=== PATIENT | female | born 1935 | race Caucasian/White ===

== ENCOUNTER → 2021-03-14 01:48 | Outpatient (CLI) | payer MEDICARE, SELFPAY ==
[2021-03-14 19:04] LABS: SARS-CoV-2 RNA PCR Negative
== END ==
PROVIDERS: Visit Provider Orthopaedic Surgery
DX: Z01.812 Encounter for preprocedural laboratory examination (principal); Z20.822 Contact with and (suspected) exposure to COVID-19
CPT/HCPCS: C9803; U0003; U0005

== ENCOUNTER 2021-03-14 08:32 | Outpatient (CLI) | payer MEDICARE, SELFPAY ==
--- NOTE | 2021-03-14 08:30 | ECG_ITS ---
Measurements Intervals [place] Rate: 75 P: 61 OR: 192 QRS: -69 QRSD: 165 T: 59 QT: 430 QTc: 480 Interpretive Statements SINUS RHYTHM WITH SINUS ARRHYTHMIA RIGHT BUNDLE BRANCH BLOCK LEFT ANTERIOR FASCICULAR BLOCK LEFT VENTRICULAR HYPERTROPHY AND ST-T CHANGE BASELINE ARTIFACT- I, II, III, AVR, AVL, AVF, V1-V6 ABNORMAL ECG Electronically Signed On 03-14-2021 12:16:41 CDT by Marbin Ramirez D.O.
== END 2021-03-14 08:33 | disposition home or self-care (01) ==
PROVIDERS: PCP Internal Medicine; Visit Provider Orthopaedic Surgery
DX: I10 Essential (primary) hypertension (principal); Z01.818 Encounter for other preprocedural examination; I45.10 Unspecified right bundle-branch block; I44.4 Left anterior fascicular block
CPT/HCPCS: 93005; C9803; U0003; U0005

== ENCOUNTER 2021-03-18 15:36 | Observation (INO) | payer MEDICARE, SELFPAY ==
[2021-03-04 10:23] VITALS: BMI 19.1
[2021-03-17] VITALS (27 sets, daily range): BP systolic 119–162; BP diastolic 46–87; PULSE 70–108; RESP 14–17; TEMP 36.3–37.7; O2SAT 94–100
[2021-03-17] MEDS: ACETAMINOPHEN 500 MG TABLET 1000 MG PO (08:17)
[2021-03-17] MEDS: LACTATED RINGERS 1,000 ML 30 ML IV CONT ×2 (08:39→12:01)
--- NOTE | 2021-03-17 08:40 | WPDHPUPDATE1 ---
History and Physical Update Update Date/Time: 03/17/21 08:40 History and Physical has been reviewed, including an updated exam of the patient. There are NO changes in the patient's condition. Covid test negative Risks, benefits, and alternatives have been discussed and questions answered. Patient agrees to proceed with procedure.
[2021-03-17] MEDS: KETOROLAC 15 MG/ML VIAL (*BKC) IV PUSH (08:41)
--- NOTE | 2021-03-17 09:34 | WPDANESEPPF ---
Anes - Initial Pre Proc Eval Procedure: Operation Date: 03/17/21 10:00 Proposed Procedures p Left Second Hammer Toe Correction - Felipe Slade MD Date/Time: 03/17/21 09:34 Surgeon: Felipe Slade MD Pre Op Diagnosis: left 2nd hammer toe Patient Data Age: 85 Gender: F Height: 5 ft 2.5 in Weight: 51 kg Last Vital Signs Temp 99.8 F H 03/17/21 08:50 Pulse 70 03/17/21 08:50 Resp 16 03/17/21 08:50 BP 149/57 H 03/17/21 08:50 Pulse Ox 95 03/17/21 08:50 Allergies Allergy/AdvReac Type Severity Reaction Status Date / Time hydrocodone Allergy Severe Anaphylactic Verified 03/17/21 08:11 Shock Sulfa (Sulfonamide Allergy Intermediate RASH/ITCHIN Verified 03/17/21 08:11 Antibiotics) G sulfanilamide Allergy Unknown Unknown Verified 03/04/21 10:19 NARCOTIC SENSITIVE AdvReac Intermediate NAUSEA/VOMI Uncoded 03/04/21 10:19 TING OPIATEAGONISTS AdvReac Unknown N/V Uncoded 03/04/21 10:19 Home Medications Medication Instructions Recorded Confirmed Type acetaminophen-codeine 1 cap PO PRN PRN 03/04/21 03/04/21 History amlodipine 5 mg PO QAM 03/04/21 03/17/21 History dexamethasone [Maxidex] 1 drp RIGHT EYE TID 03/04/21 03/17/21 History lamotrigine 150 mg PO QAM 03/04/21 03/17/21 History lisinopril 10 mg PO DAILY 03/04/21 03/17/21 History meloxicam 15 mg PO DAILY 03/04/21 03/17/21 History prednisolone acetate 1 drp RIGHT EYE QID 03/04/21 03/17/21 History tobramycin-dexamethasone 1 drp LEFT EYE QID 03/04/21 03/17/21 History Patient hx anesthesia problems: none Family hx anesthesia problems: none PMFSH Past Medical History Medical History (Updated 03/01/21 @ 15:26 by Felipe Slade MD) Arthritis Hammertoe of second toe of left foot Metatarsalgia of both feet Sprain of left foot Surgical History Surgical History History of total left knee replacement (TKR) (~09/2018) Family History Family History Other Family history of arthritis Hypertension Social History Social History Smoking status: Never smoker Alcohol intake: current Alcohol use details: ONE DRINK PER MONTH Substance use: never Living arrangements: alone Gender identity (if verbalized by the patient): Female Spiritual care concerns: No Anes - Eval Final PreProcedure Day of Procedure 03/17/21 09:34 Patient weight: normal Heart: regular rate and rhythm Lungs: clear to auscultation Airway: Mallampati scale class II Neurological: alert and oriented Last oral intake: >/= 8 hours ASA classification: II Anesthetic plan: proceed Anesthesia type and monitoring: general LMA and standard monitoring Informed Consent: The patient's anesthetic plan and its attendant risks and benefits were discussed with the patient/family/POA. Questions were solicited and answers provided to the satisfaction of the patient/family/POA.
--- NOTE | 2021-03-17 09:50 | SUR.PREOP ---
Warm blanket applied. Discussed delay with patient and daughter, voiced understanding.
[2021-03-17] MEDS: ceFAZolin 2 GM/D5W 50 ML 2 GM/50 ML BAG IVPB (11:27)
[2021-03-17] MEDS: BUPIVACAINE HCL 0.5% PF 30 ML VIAL INFILTRATE (11:43)
[2021-03-17] MEDS: fentaNYL CITRATE INJ (*CRX) 100 MCG/2 ML VIAL 25 MCG IV PUSH ×2 (12:22→12:37)
--- NOTE | 2021-03-17 12:27 | P.OP_ITS ---
Procedure Note - Detailed Date of procedure: 03/17/21 Pre-op diagnosis: left 2nd hammer toe Post-op diagnosis: same Procedure performed: Left 2nd hammertoe correction with PIP arthrodesis Description of procedure: Indications: Patient is a 85-year-old woman with a left 2nd hammertoe which has caused ulceration over the dorsum of the PIP joint. She has failed conservative treatment with shoe accommodation, padding and dressings. She is at risk for infection. She presents now for operative treatment. What was done: Patient identified in the preoperative holding. Informed consent given. Operative extremity marked. Patient received intravenous antibiotics. Patient brought to the operating room where underwent general anesthetic by anesthesia team. Positioned supine on operating room table. Time-out performed confirming the patient, site of the surgery and the plan. Left foot prepped draped usual sterile surgical fashion using ChloraPrep skin solution. Foot exsanguinated and calf tourniquet inflated to 225 mmHg. Local anesthetic 0.5% Marcaine. Elliptical incision made over the dorsum of the 2nd toe with 15 blade knife removing the ulceration and the extensor tendon complex. Collateral ligaments released and bone cutter used to remove the distal portion of the proximal phalanx and the proximal portion of the middle phalanx. Bone and smoothed with a rongeur. Wound irrigated. Toe was then reduced and fixed with the Arthrex hammertoe implant. A 0.045 in K-wires used a supplementary fixation. Image intensification confirmed alignment of the toe in placement of the hardware. Wound irrigated once again and skin closed with 4 nylon interrupted suture. Sterile dressing applied. The patient was then woken from anesthesia, extubated and taken to the recovery room in stable condition. All sponge, needle, instrument counts were correct at the end of the case. Implants: Arthrex 14 mm hammertoe implant, 0.45 in K-wire Anesthesia: GLMA Surgeon: Felipe Slade MD Director Pharmacovigilance: 1st assistant store manager operations Estimated blood loss (mL): 2 Tourniquet time (min): 27 Drains: No Packing: No Pathology: none sent Complications: None Condition: stable Disposition: PACU
[2021-03-17] MEDS: ALBUTEROL SULFATE NEB 2.5 MG/3 ML INH 1.25 MG INHALATION (13:27)
[2021-03-17] MEDS: DEXAMETHASONE SOD PHOS INJ 4 MG/ML VIAL 8 MG IV PUSH (13:36)
[2021-03-17] MEDS: diphenhydrAMINE HCl INJ 50 MG/ML VIAL 6.25 MG IV PUSH (13:48)
[2021-03-17] MEDS: racEPINEPHrine 2.25% NEBU SOLN 0.5 ML VIAL.NEB INHALATION (14:00)
--- NOTE | 2021-03-17 14:17 | PM.PNORT ---
Progress Note: A&P Assessment and Plan (1) Hammertoe of second toe of left foot: Code(s): M20.42 - Other hammer toe(s) (acquired), left foot Status: Acute (2) Metatarsalgia of both feet: Code(s): M77.41 - Metatarsalgia, right foot; M77.42 - Metatarsalgia, left foot Status: Acute (3) Inspiratory stridor: Code(s): R06.1 - Stridor Status: Acute Assessment and Plan: Patient postop from left foot hammertoe correction. Respiratory stridor and some shortness of breath noted. Improved with respiratory treatment and racemic epinephrine. Patient continues to saturate well at 98 and 99% however due to history of previous respiratory problems requiring intubation we will admit the patient and continue respiratory treatments. If she does well overnight may be able to discharge home tomorrow. Hospitalist contacted as [employer] treasury consultant. Continue oxygen protocol. Discussed with patient and family. They verbalized agreement. Subjective Subjective Date/Time Seen: 03/17/21 14:17 Called to postoperative area to evaluate patient. Patient with shortness of breath and stridor. Oxygen saturation at 99% but patient feels weak and somnolent. Apparently history of similar episode after previous general anesthetic which then required intubation. Exam Const: General: healthy appearing; No in distress or confusion Orientation/consciousness: patient oriented x3 and No confusion HENMT: Head: normal to inspection, normocephalic and atraumatic Eyes: Conjunctivae: conjunctivae normal Sclera: sclerae normal Resp: Effort & Inspection: normal respiratory effort and no audible wheezes Neuro: General: patient oriented x3 and No confusion Psych: Affect: normal affect Objective Data Vital Signs Vital Signs: Vital Signs - 24 hr 03/17/21 08:50 03/17/21 12:01 03/17/21 12:15 Temperature 99.8 F H 97.7 F Pulse Rate 70 87 82 Respiratory Rate 16 17 16 Blood Pressure 149/57 H 139/68 129/56 L Pulse Oximetry 95 100 100 03/17/21 12:30 03/17/21 12:45 03/17/21 12:50 Temperature Pulse Rate 79 79 70 Respiratory Rate 14 14 16 Blood Pressure 135/48 L 126/56 L 158/87 H Pulse Oximetry 100 100 100 03/17/21 13:20 03/17/21 13:25 03/17/21 13:30 Temperature Pulse Rate 81 80 86 Respiratory Rate 16 16 Blood Pressure 151/67 H Pulse Oximetry 95 03/17/21 13:50 03/17/21 14:00 03/17/21 14:05 Temperature Pulse Rate 86 87 88 Respiratory Rate 16 Blood Pressure 162/67 H Pulse Oximetry 98 Intake/Output Intake/Output: Intake & Output 03/14/21 03/15/21 03/16/21 03/17/21 23:59 23:59 23:59 23:59 Intake Total 100 Balance 100 Meds/Results Medications: Active Medications Generic Name Dose Route Start Last Admin Trade Name Freq PRN Reason Stop Dose Admin Acetaminophen/Codeine Phosphate 1 tab 03/17/21 12:46 Acetaminophen/Codeine (*Crx) 300/30 Mg Tablet PO ONCE PRN Pain Rated 4-6 Fentanyl Citrate 25 mcg 03/17/21 09:40 03/17/21 12:37 Fentanyl Citrate Inj (*Crx) 100 Mcg/2 Ml Vial IV PUSH 25 mcg Q2M PRN Administration Pain Lactated Ringer's 1,000 mls @ 30 mls/hr 03/16/21 13:20 03/17/21 12:01 Lr - Lactated Ringers Iv IV CONT Infused .Q24H ASHLY Infusion Lactated Ringer's 1,000 mls @ 30 mls/hr 03/17/21 09:40 03/17/21 12:45 Lr - Lactated Ringers Iv IV CONT 30 mls/hr .Q24H ASHLY Infusion Ondansetron HCl 4 mg 03/17/21 09:40 Ondansetron Inj 4 Mg/2 Ml Vial IV PUSH ONCE PRN Nausea Radiology Results: ITS Impressions Intraoperative X-Ray 03/17/21 13:13 IMPRESSION: 1. Fluoroscopy utilized during instrumented arthrodesis at the second proximal interphalangeal joint. See procedure note for further detail.
--- NOTE | 2021-03-17 14:19 | SUR.PHASEII ---
1300- Dr. Felton called and notified patient reporting she is having trouble breathing. Patient raspy and coughing. Reports she is struggling to take breaths at this time. Patient is 100% on room air. 1305- Dr. Felton to outpatient room 14 and listened to patient and evaluated her current status. Orders obtained for Albuterol nebulizer treatment. 1327- Orders from Dr. Felton during rounds on patient at bedside for 8MG of decadron IVP. 1345- Dr. Felton back to outpatient room 14 to assess patient's current status and given orders for Benadryl 6.25MG IVP and Racemic epi nebulizer. 1353- Notified Dr. Slade of patient's current status requiring breathing treatments and IV steroids for her upper airway status. Dr. Slade in to see patient and Daughter Melinda in outpatient room 14 and discussed her care. Per Dr. Slade patient can be admitted overnight for observation. 1413- Dr. Felton to bedside to speak with daughter Melinda and assess patient's current respiratory status. Patient reporting improvement with breathing and oxygen saturation on room air stable at this time.
--- NOTE | 2021-03-17 15:23 | SUR.PHASEII ---
1520- Call to JOCELYNN Sears on [facility] to give report. Per floor RN she is not available for report at this time.
--- NOTE | 2021-03-17 15:44 | SUR.PHASEII ---
1544- Report given to charge nurse Agnela Garrett at this time.
--- NOTE | 2021-03-17 15:52 | SUR.PHASEII ---
6524- Call to Dr. Slade to review patient's home medications at this time. Reviewed orders for continuing and holding medications and notified MD patient will be transferred to [facility] med/tele.
--- NOTE | 2021-03-17 16:00 | ADMGEN ---
This patient, Chel Jacobo, was admitted to Medical Room 246-01. Patient/family oriented to hospital policies and general routines including ID bracelet, bed and alarms, visiting hours, pain management, procedures, bathroom and other care routines, personal items, smoking policy, room service/diet, and visiting hours. Information on how to activate the Rapid Response Team has been discussed. Patient/Family are encouraged to report perceived risks to care and to ask questions if they do not understand what they are told or what they should do.
[2021-03-17] MEDS: ALBUTEROL SULFATE NEB 2.5 MG/0.5 ML INH 5 MG INHALATION ×2 (18:22→20:47)
[2021-03-17] MEDS: IPRATROPIUM BR 0.02% INH SOLN 0.5 MG/2.5 ML VIAL INHALATION (18:24)
[2021-03-17] MEDS: DOCUSATE SODIUM 100 MG CAPSULE PO (18:30)
[2021-03-17] MEDS: lisinopriL 10 MG TABLET PO (18:37)
[2021-03-17] MEDS: ACETAMINOPHEN 325 MG TABLET 650 MG PO (19:33)
--- NOTE | 2021-03-17 20:11 | PM.IMHP ---
H&P: HPI History of Present Illness Date/Time: 03/17/21 20:11 female patient who had surgery per Dr. Slade. Postoperatively the patient developed some wheezes and some stridor. The patient stated that she is allergic to hydrocodone and had a similar reaction with the previous surgery. The patient stated that she did not feel comfortable going home today as she was wheezing and felt short of breath. The patient stated that she had a BiPAP on with her last surgery. Please see the operative report. Postoperatively. Her oxygen level came up to 98-9 9%. She is currently on room air. The patient was prescribed nebulizer treatments. The patient stated that she does use an inhaler occasionally at home when she short of breath but she denies any asthma or COPD or emphysema. She denies any smoking history. The patient was being admitted for observation postoperative and I was consulted due to the stridor. Date of service is 03/17/2021. Chief Complaint: Respiratory stridor Review of Systems Review of Systems: All systems reviewed & are unremarkable except as noted in HPI and below Constitutional: Constitutional: Reports as per HPI and Reports no additional constitutional complaints Eyes: Eyes: Reports as per HPI and Reports no additional eye complaints ENT: Reports system reviewed and no additional complaints, except as documented and Reports Normal hearing present Cardiovascular: Cardiovascular: Reports no additional cardiovascular complaints Respiratory: Respiratory: Reports no additional respiratory complaints and Reports no additional respiratory complaints Gastrointestinal: Gastrointestinal: Reports as per HPI and Reports no additional gastrointestinal complaints Musculoskeletal: Musculoskeletal: Reports no additional musculoskeletal complaints Integumentary/Breasts: Skin/Breast: Reports system reviewed and no additional complaints, except as docu and Reports as per HPI Neurologic: Reports system reviewed and no additional complaints, except as documented, Reports as per HPI and Reports Normal hearing present Psychiatric: Psychiatric: Reports no additional psychiatric complaints and Reports as per HPI Endocrine: Endocrine: Reports no additional endocrine complaints Hematologic/Lymphatic: Hematologic/Lymphatic: Reports no additional hematologic/lymphatic complaints Allergic/Immunologic: Allergic/Immunologic: Reports no additional allergic/immunologic complaints [facility] Past Medical History Medical History (Updated 03/17/21 @ 20:21 by Carmella Palacios NP) Arthritis Hammertoe of second toe of left foot Hypertension Inspiratory stridor Metatarsalgia of both feet Sprain of left foot Surgical History Surgical History (Updated 03/17/21 @ 20:30 by Carmella Palacios NP) H/O aortic valve replacement Pig valve H/O: hysterectomy History of appendectomy History of bunionectomy History of corneal transplant Right eye History of total left knee replacement (TKR) (~09/2018) History of total right knee replacement Family History Family History (Updated 03/17/21 @ 20:24 by Carmella Palacios NP) Son Suicide Son Ruptured spleen Other Family history of arthritis Hypertension Social History Social History (Updated 03/17/21 @ 20:28 by Carmella Palacios NP) Social History: 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 She is . She gave to 4 children. Two of her sons are . She now has 2 daughters surviving. Melinda is the daughter who is the durable power estate planning attorney for healthcare. The patient requested to be a full code but does not want to live in a vegetative state. The patient denies any alcohol or illicit drugs. She stated that she never smoked. Smoking status: Never smoker Alcohol intake: current Alcohol use details: ONE DRINK PER MONTH Substance use: never Living arrangements: alone Gender identity (if verbalized by the patient): Female Spiritual care concerns: No
[2021-03-17] MEDS: FAMOTIDINE 20 MG TABLET PO (20:19)
[2021-03-17] MEDS: TOBRAMYCIN/DEXAMETHASONE OP 2.5 ML BTL 1 DROP LEFT EYE (20:30)
[2021-03-18] VITALS (23 sets, daily range): BP systolic 106–147; BP diastolic 45–66; PULSE 50–101; RESP 16–20; TEMP 36.3–37.4; O2SAT 93–100
--- NOTE | ~2021-03-18 | XR_ITS ---
XR chest 1V portable 03/17/2021 20:31 Indication: Hypertension. Aortic valve replacement. Procedure: AP portable chest Comparison: No prior studies for comparison. Findings: Status post median sternotomy for CABG. Left basilar atelectasis. No focal pneumonia, edema , pleural effusion or pneumothorax. No acute osseous abnormality. 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 There are calcified bilateral breast implants. There is scoliosis. Impression: 1: Left basilar atelectasis. Reviewed, dictated and finalized at location A. Impression: 1: Left basilar atelectasis.
--- NOTE | ~2021-03-18 | XR_ITS ---
EXAMINATION: XR surgery orthopedic DATE: 03/17/2021 12:00 INDICATION: Left foot hammertoe TECHNIQUE: 3 fluoroscopic images of the left forefoot were obtained during procedure performed by Dr. Slade. Radiologist was not present for the imaging or procedure. The amount of fluoroscopy time us ed during this procedure was 0.2 minutes. COMPARISON: 03/01/2021 FINDINGS: Images demonstrate arthrodesis at the second proximal interphalangeal joint. The fixation device has been placed across the joint space over an axially directed pin which extends from the tuft of the di stal phalanx through the middle and proximal phalanges and into the distal diaphysis of the second me tatarsal. Old healed fracture versus osteotomies at the distal diaphyses of the second-fourth metatar sals. Likely postoperative changes at the head and neck of the first metatarsal of likely bunionectom y and realignment osteotomy. No fracture. Mild polyarticular osteoarthritis at the first metatarsopha langeal and a few of the tarsometatarsal and interphalangeal joints. IMPRESSION: 1. Fluoroscopy utilized during instrumented arthrodesis at the second proximal interphalangeal joint. See procedure note for further detail. Reviewed, dictated and finalized at location A.
--- NOTE | 2021-03-18 01:54 | PC.NURSE ---
PT HAS STATED SEVERAL TIMES ABOUT SUEING OVER DIFFERENT THINGS LIKE IF HER PHONE BREAKS AND IF HER BELONGINGS GET STOLEN. REASSURED PT
[2021-03-18] MEDS: ALBUTEROL SULFATE NEB 2.5 MG/0.5 ML INH 5 MG INHALATION ×4 (02:59→21:20)
[2021-03-18] MEDS: lisinopriL 10 MG TABLET PO (08:33)
[2021-03-18] MEDS: lamoTRIgine 100 MG TABLET PO (08:33)
[2021-03-18] MEDS: amLODIPine BESYLATE 5 MG TABLET PO (08:33)
[2021-03-18] MEDS: MIRABEGRON 25 MG ER TABLET PO (08:33)
[2021-03-18] MEDS: lamoTRIgine 25 MG TABLET 50 MG PO (08:33)
[2021-03-18] MEDS: DOCUSATE SODIUM 100 MG CAPSULE PO ×2 (08:33→16:39)
[2021-03-18] MEDS: FAMOTIDINE 20 MG TABLET PO ×2 (08:33→19:52)
[2021-03-18] MEDS: TOBRAMYCIN/DEXAMETHASONE OP 2.5 ML BTL 1 DROP LEFT EYE ×4 (08:34→19:53)
[2021-03-18 11:11] LABS: Basophils Percent Auto 0.2 % (0.2-1.2); Hematocrit 29.6 % (37.0-47.0); Hemoglobin 9.4 g/dL (12.0-15.0); Immature Granulocyte Absolute 0.06 K/mm3 (0.00-0.031); Immature Granulocyte Percent A 0.4 % (0-0.5); Lymphocytes Absolute Auto 1.04 K/mm3 (0.9-3.2); Lymphocytes Percent Auto 7.3 % (18.3-44.2); Mean Corpuscular HGB Conc 31.8 g/dl (32-36); Mean Corpuscular Hemoglobin 27.5 pg (26-34); Mean Corpuscular Volume 86.5 fl (80-100); Mean Platelet Volume 9.2 fl (7.4-10.4); Monocytes Absolute Auto 1.2 K/mm3 (0.1-0.6); Monocytes Percent Auto 8.2 % (2.6-8.5); Neutrophils Percent Auto 83.9 % (45.5-73.1); Platelet Count Result 287 k/mm3 (150-375); Red Blood Count 3.42 M/mm3 (4.2-5.4); Red Cell Distribution Width 13.9 % (11.5-14.5); White Blood Count 14.3 K/mm3 (4.5-10.0)
[2021-03-18 11:26] LABS: Anion Gap 3 mmol/L (8-16); Blood Urea Nitrogen 25 mg/dL (7-17); Carbon Dioxide 30 mmol/L (22-30); Chloride 103 mmol/L (98-107); Estimated CRCL calculation 27 ml/min; Estimated Glomerular Filt Rate 47; Glucose 106 mg/dL (65-105); Potassium 4.4 mmol/L (3.4-5.0); Sodium 136 mmol/L (137-145)
--- NOTE | 2021-03-18 13:01 | PM.PNORT ---
Progress Note: A&P Assessment and Plan (1) Hammertoe of second toe of left foot: Code(s): M20.42 - Other hammer toe(s) (acquired), left foot Status: Acute Assessment and Plan: Postoperative day 1. Left 2nd hammertoe repair. Patient admitted for respiratory stridor and difficulty with swallowing. She did relatively well overnight with breathing. She is still having difficulty with swallowing. Patient indicated for for swallowing study. Plan for dressing change left foot tomorrow. Partial weight-bearing with postoperative shoe. Plans for discharge home when medically stable. Subjective Subjective Date/Time Seen: 03/18/21 09:45 Exam Const: General: healthy appearing; No in distress or confusion Orientation/consciousness: patient oriented x3 and No confusion HENMT: Head: normal to inspection, normocephalic and atraumatic Eyes: Conjunctivae: conjunctivae normal Sclera: sclerae normal Resp: Effort & Inspection: normal respiratory effort and no audible wheezes Neuro: General: patient oriented x3 and No confusion Extrem: Right upper extremity: normal to inspection, normal capillary refill and wrist radial pulse present Left upper extremity: normal to inspection, normal capillary refill and wrist radial pulse present Right lower extremity: normal to inspection and foot Details: vascular exam Details: normal capillary refill and motor-sensory exam Details: light-touch normal Location: in all toes Left lower extremity: foot Details: normal capillary refill, vascular exam Details: normal capillary refill and other ( Dressing clean dry and intact left foot. Toe tips with good color and viability. Pin site clean and dry.) Psych: Affect: normal affect Objective Data Vital Signs Vital Signs: Vital Signs - 24 hr 03/17/21 13:20 03/17/21 13:25 03/17/21 13:30 Temperature Pulse Rate 81 80 86 Respiratory Rate 16 16 Blood Pressure 151/67 H Pulse Oximetry 95 03/17/21 13:50 03/17/21 14:00 03/17/21 14:05 Temperature Pulse Rate 86 87 88 Respiratory Rate 16 Blood Pressure 162/67 H Pulse Oximetry 98 03/17/21 14:15 03/17/21 14:45 03/17/21 15:10 Temperature Pulse Rate 84 90 89 Respiratory Rate 16 16 16 Blood Pressure 146/61 H 143/66 H 151/61 H Pulse Oximetry 98 97 97 03/17/21 15:34 03/17/21 15:47 03/17/21 16:00 Temperature 98.2 F Pulse Rate 88 90 90 Respiratory Rate 14 14 16 Blood Pressure 133/54 L 138/61 129/62 Pulse Oximetry 94 98 97 03/17/21 16:15 03/17/21 16:42 03/17/21 16:45 Temperature 98.3 F 98.2 F Pulse Rate 87 91 89 Respiratory Rate 16 16 Blood Pressure 129/63 126/60 Pulse Oximetry 97 97 03/17/21 17:45 03/17/21 20:00 03/17/21 20:48 Temperature 98.4 F Pulse Rate 88 100 95 Respiratory Rate 16 16 Blood Pressure 152/69 H Pulse Oximetry 97 97 03/17/21 20:50 03/17/21 21:00 03/17/21 22:00 Temperature 97.3 F L Pulse Rate 96 108 H Respiratory Rate 16 16 Blood Pressure 119/46 L Pulse Oximetry 96 95 03/18/21 00:00 03/18/21 00:06 03/18/21 03:01 Temperature 98.0 F Pulse Rate 101 H 56 L 83 Respiratory Rate 18 16 Blood Pressure 118/50 L Pulse Oximetry 96 03/18/21 03:10 03/18/21 04:00 03/18/21 04:06 Temperature 97.4 F L Pulse Rate 85 83 89 Respiratory Rate 16 20 Blood Pressure 106/54 L Pulse Oximetry 98 03/18/21 07:37 03/18/21 07:43 03/18/21 07:45 Temperature Pulse Rate 82 82 Respiratory Rate 16 16 Blood Pressure Pulse Oximetry 100 03/18/21 08:00 03/18/21 08:15 03/18/21 08:34 Temperature 99.4 F Pulse Rate 99 51 L Respiratory Rate 18 18 Blood Pressure 110/45 L Pulse Oximetry 98 98 03/18/21 12:37 Temperature 98.4 F Pulse Rate 50 L Respiratory Rate 18 Blood Pressure 124/46 L Pulse Oximetry 97 Intake/Output Intake/Output: Intake & Output 03/15/21 03/16/21 03/17/21 03/18/21 23:59 23:59 23:59 23:59 Intake Total 760 1090 Output Total 300 800 Balance 460
--- NOTE | 2021-03-18 13:34 | WPDANESPN ---
Anes - Prog Note Post-Op Date/Time: 03/18/21 13:34 Cardiovascular status: normal Respiratory status: normal Airway patency: baseline Mental status: baseline Post-Op hydration status: normal Vital Signs: Last Vital Signs Temp 36.9 C 03/18/21 12:37 Pulse 79 03/18/21 13:11 Resp 16 03/18/21 13:11 BP 124/46 L 03/18/21 12:37 Pulse Ox 97 03/18/21 12:37 Pain Score (VAS): no complaints I/O: Intake & Output 03/17/21 03/18/21 03/18/21 23:59 07:59 15:59 Intake Total 360 850 480 Output Total 300 800 Balance 60 50 480 Laboratory Tests 03/18/21 10:58 03/18/21 10:58 03/18/21 03/18/21 10:58 10:58 WBC 14.3 H RBC 3.42 L Hgb 9.4 L Hct 29.6 L MCV 86.5 MCH 27.5 MCHC 31.8 L RDW 13.9 Plt Count 287 MPV 9.2 Immature Gran % (Auto) 0.4 Neut % (Auto) 83.9 H Lymph % (Auto) 7.3 L [place]mer % (Auto) 8.2 Eos % (Auto) 0.0 Baso % (Auto) 0.2 Lymph # (Auto) 1.04 [place] # (Auto) 1.2 H Eos # (Auto) 0.0 Baso # (Auto) 0.0 Abs Immat Gran (auto) 0.06 H Absolute Neuts (auto) 12.0 H Absolute Nucleated RBC 0.0 Nucleated RBC % 0.0 Sodium 136 L Potassium 4.4 Chloride 103 Carbon Dioxide 30 Anion Gap 3 L BUN 25 H Creatinine 1.10 H Estim Creat Clear Calc 27 Estimated GFR 47 L Glucose 106 H Calcium 10.0 Post-procedural complaints: none Patient Feedback: Patient satisfied with anesthetic care.
--- NOTE | 2021-03-18 13:46 | PCSTNOTE ---
Please refer to the Bedside Swallow Evaluation in the EMR. Please note, silent aspiration cannot be ruled out at bedside.
--- NOTE | 2021-03-18 13:50 | PM.IMPN ---
Progress Note: A&P Assessment and Plan (1) Inspiratory stridor: Code(s): R06.1 - Stridor Status: Acute Assessment and Plan: CXR iven racemic epi x1\ Possible Reaction to anesthesia Will continue with nebulizer treatments Continues on RA (2) Hypertension: Code(s): I10 - Essential (primary) hypertension Status: Chronic Assessment and Plan: Continue with her Norvasc (3) History of corneal transplant: Code(s): Z94.7 - Corneal transplant status Status: Inactive Assessment and Plan: Continue with home eye drops (4) Hammertoe of second toe of left foot: Code(s): M20.42 - Other hammer toe(s) (acquired), left foot Status: Acute Assessment and Plan: Care per Dr. Slade DVT prophylax per Ortho Plan for d/c tomorrow Subjective Date/time seen: 03/18/21 13:50 Pt seen and evaluated; VSS, labs reviewed; pain controlled Review of Systems Review of Systems: All systems reviewed & are unremarkable except as noted in HPI and below Exam Const: General: cooperative, healthy appearing, comfortable, no acute distress, well developed, alert, awake and Physically active Nutritional Appearance: average body habitus and well nourished Orientation/consciousness: oriented to person, oriented to place, oriented to time and patient oriented x3 Limitations: no limitations HENMT: Head: normal to inspection, No palpable skull fracture present, normocephalic and atraumatic Ears: hearing grossly normal bilaterally and external ears normal General nose exam: Normal external nose present, Normal nares present and No nasal polyps present Eyes: General: appearance normal, both eyes and all related structures Conjunctivae: conjunctivae normal Sclera: sclerae normal EOM: EOMs intact bilaterally Neck: Neck: normal visual inspection, full ROM, no lymphadenopathy, trachea midline and supple Thyroid: thyroid normal Carotids: normal carotid upstroke Lymphatic: no lymphadenopathy noted Chest: Chest palpation & inspection: normal inspection of the chest Resp: Effort & Inspection: normal respiratory effort Auscultation: clear to auscultation bilaterally Percussion: percussion normal Cardio: Palpation: normal PMI Rate: regular rate Rhythm: regular rhythm Heart sounds: S1 normal heart sound present and S2 normal heart sound present Peripheral pulses: Peripheral pulses 2+ throughout GI: Inspection: normal to inspection Auscultation: normal bowel sounds Rectal Exam: deferred Skin: General skin exam: normal color Lesions: no lesions Rashes: no rashes Trauma: no lacerations or abrasions Wounds: no wounds Hair: normal Nails: normal Neuro: General: oriented to person, oriented to place, oriented to time and patient oriented x3 Cranial nerves: Yes Equal, round and reactive pupils present and Yes Normal hearing present Cognition (Neuro): normal cognition Speech: normal speech Sensory Exam: normal sensation Extrem: General: normal to inspection Right upper extremity: normal to inspection Left upper extremity: normal to inspection Right lower extremity: normal to inspection Left lower extremity: foot (Dressing intact to left foot without drainage) Psych: Appearance: grossly normal Mental Status: mental status grossly normal Speech and movement: Normal speech and movement present Affect: normal affect Attitude: cooperative Thought process: Normal thought process present Insight: Good insight present (Psych) Judgement: Good judgement present (Psych) Objective Data Vital Signs Vital Signs: Vital Signs - 24 hr 03/17/21 14:00 03/17/21 14:05 03/17/21 14:15 Temperature Pulse Rate 87 88 84 Respiratory Rate 16 Blood Pressure 146/61 H Pulse Oximetry 98 03/17/21 14:45 03/17/21 15:10 03/17/21 15:34 Temperature Pulse Rate 90 89 88 Respiratory Rate 16 16 14 Blood Pressure 143/66 H 151/61 H 133/54 L Pulse Oximetry 97 97 94 03/17/21 15:47 03/17/21 1
[2021-03-18] MEDS: ACETAMINOPHEN 325 MG TABLET 650 MG PO ×3 (14:45→23:53)
--- NOTE | 2021-03-18 15:08 | PC.NURSE ---
On 03/18/21, the student, [Nilton Shrestha ], provided care and completed MUJIN documentation on this patient. I have reviewed the student's documentation and agree with the findings.
[2021-03-19] VITALS (8 sets, daily range): BP systolic 125–129; BP diastolic 51–67; PULSE 71–93; RESP 16–18; TEMP 36.2–36.3; O2SAT 93–100
[2021-03-19] MEDS: ALBUTEROL SULFATE NEB 2.5 MG/0.5 ML INH 5 MG INHALATION (02:42)
[2021-03-19] MEDS: ACETAMINOPHEN 325 MG TABLET 650 MG PO ×2 (06:38→10:41)
[2021-03-19] MEDS: FAMOTIDINE 20 MG TABLET PO (09:18)
--- NOTE | 2021-03-19 09:22 | PC.NURSE ---
pt took daily meds from out of her purse, reviewed with pt that she should not be taking meds without informing nursing
--- NOTE | 2021-03-19 10:01 | PM.DS ---
DS: Admitting Diagnosis Admitting Diagnosis Admitting Diagnosis: Left 2nd hammertoe, respiratory stridor, swallowing difficulty DS: Discharge Diagnosis Discharge Diagnosis (1) Inspiratory stridor: Code(s): R06.1 - Stridor Status: Acute (2) Hammertoe of second toe of left foot: Code(s): M20.42 - Other hammer toe(s) (acquired), left foot Status: Acute DS: Summary Hospital Course Reason for hospitalization: observation status post surgery, difficulty with breathing and swallowing. Hospital Course: 85-year-old woman underwent surgery for left 2nd hammertoe. Postoperatively found to have respiratory stridor and difficulty swelling. Admitted for workup and observation. Patient unstable to be at home under own care. Patient admitted and received respiratory treatments with racemic epinephrine and up draft. Improvement noted in breathing. We remained stable from a oxygenation standpoint. Difficulty with swallowing on hospital day 1. Swallowing study performed. With verbal cues patient safely able to swallow. Patient was cleared for discharge home. She was medically stable. Vital signs were stable. She is tolerating regular diet. Pain was controlled. She passed her physical therapy treatment and was cleared for discharge. Consultations respiratory therapy, speech therapy for swallowing, physical therapy and occupational therapy. Hospitalist medicine. Status at Discharge Cognitive/behavioral status at discharge: Alert and oriented x3. Stable Functional status at discharge: uses cane/walker Overall status at discharge: patient is back to baseline Exam Const: General: healthy appearing; No in distress or confusion Orientation/consciousness: patient oriented x3 and No confusion HENMT: Head: normal to inspection, normocephalic and atraumatic Eyes: Conjunctivae: conjunctivae normal Sclera: sclerae normal Resp: Effort & Inspection: normal respiratory effort and no audible wheezes Neuro: General: patient oriented x3 and No confusion Extrem: Right upper extremity: normal to inspection, normal capillary refill and wrist radial pulse present Left upper extremity: normal to inspection, normal capillary refill and wrist radial pulse present Right lower extremity: normal to inspection and foot Details: vascular exam Details: normal capillary refill and motor-sensory exam Details: light-touch normal Location: in all toes Left lower extremity: foot Details: normal capillary refill, vascular exam Details: normal capillary refill and other ( dressing changed left foot. Incision clean and dry. Good capillary refill all toes. Pin site clean and dry.) Psych: Affect: normal affect DS: Data Data Completed and Pending Labs on day of discharge: Labs from last 24 hours 03/18/21 03/18/21 10:58 10:58 WBC 14.3 H RBC 3.42 L Hgb 9.4 L Hct 29.6 L MCV 86.5 MCH 27.5 MCHC 31.8 L RDW 13.9 Plt Count 287 MPV 9.2 Immature Gran % (Auto) 0.4 Neut % (Auto) 83.9 H Lymph % (Auto) 7.3 L [place] % (Auto) 8.2 Eos % (Auto) 0.0 Baso % (Auto) 0.2 Lymph # (Auto) 1.04 [place] # (Auto) 1.2 H Eos # (Auto) 0.0 Baso # (Auto) 0.0 Abs Immat Gran (auto) 0.06 H Absolute Neuts (auto) 12.0 H Absolute Nucleated RBC 0.0 Nucleated RBC % 0.0 Sodium 136 L Potassium 4.4 Chloride 103 Carbon Dioxide 30 Anion Gap 3 L BUN 25 H Creatinine 1.10 H Estim Creat Clear Calc 27 Estimated GFR 47 L Glucose 106 H Calcium 10.0 Discharge Plan Discharge Attending physician on discharge: Felipe Slade Consulting providers: Carmella Palacios Discharging Clinician: Felipe Slade Anticipated Discharge Date/Time: 03/19/21 10:00 Patient Disposition: Home, Self-Care Activity: follow weight bearing status Diet: regular Wound Care Instructions: keep dressing dry Discharge Instructions:
--- NOTE | 2021-03-19 10:34 | PM.IMPN ---
Progress Note: A&P Assessment and Plan (1) Inspiratory stridor: Code(s): R06.1 - Stridor Status: Acute Assessment and Plan: CXR s/p epi x1 Possible Reaction to anesthesia Will continue with nebulizer treatments Continues on RA (2) Hypertension: Code(s): I10 - Essential (primary) hypertension Status: Chronic Assessment and Plan: Continue with Norvasc (3) History of corneal transplant: Code(s): Z94.7 - Corneal transplant status Status: Inactive Assessment and Plan: Continue with home eye drops (4) Hammertoe of second toe of left foot: Code(s): M20.42 - Other hammer toe(s) (acquired), left foot Status: Acute Assessment and Plan: Care per Dr. Slade DVT prophylax per Ortho Plan for d/c tomorrow Subjective Date/time seen: 03/19/21 10:34 Pt is doing well; denies any pain; is eager to d/c Review of Systems Review of Systems: All systems reviewed & are unremarkable except as noted in HPI and below Exam Const: General: cooperative, healthy appearing, comfortable, no acute distress, well developed, alert, awake and Physically active Nutritional Appearance: average body habitus and well nourished Orientation/consciousness: oriented to person, oriented to place, oriented to time and patient oriented x3 Limitations: no limitations HENMT: Head: normal to inspection, No palpable skull fracture present, normocephalic and atraumatic Ears: hearing grossly normal bilaterally and external ears normal General nose exam: Normal external nose present, Normal nares present and No nasal polyps present Eyes: General: appearance normal, both eyes and all related structures Alignment and Position: alignment normal Periorbital: periorbital findings normal Eyelids: eyelids normal Conjunctivae: conjunctivae normal Sclera: sclerae normal Cornea: corneas normal Pupils: Equal, round and reactive pupils present EOM: EOMs intact bilaterally Neck: Neck: normal visual inspection, full ROM, no lymphadenopathy, trachea midline and supple Thyroid: thyroid normal Carotids: normal carotid upstroke Lymphatic: no lymphadenopathy noted Chest: Chest palpation & inspection: normal inspection of the chest Resp: Effort & Inspection: normal respiratory effort Auscultation: clear to auscultation bilaterally Percussion: percussion normal Cardio: Palpation: normal PMI Rate: regular rate Rhythm: regular rhythm Heart sounds: S1 normal heart sound present and S2 normal heart sound present Peripheral pulses: Peripheral pulses 2+ throughout GI: Inspection: normal to inspection Auscultation: normal bowel sounds Rectal Exam: deferred Skin: General skin exam: normal color Lesions: no lesions Rashes: no rashes Trauma: no lacerations or abrasions Wounds: no wounds Hair: normal Nails: normal Neuro: General: oriented to person, oriented to place, oriented to time and patient oriented x3 Cranial nerves: Yes Equal, round and reactive pupils present and Yes Normal hearing present Cognition (Neuro): normal cognition Speech: normal speech Sensory Exam: normal sensation Extrem: General: normal to inspection Right upper extremity: normal to inspection Left upper extremity: normal to inspection Right lower extremity: normal to inspection Left lower extremity: foot (Dressing intact to left foot without drainage) Psych: Appearance: grossly normal Mental Status: mental status grossly normal Speech and movement: Normal speech and movement present Affect: normal affect Attitude: cooperative Thought process: Normal thought process present Insight: Good insight present (Psych) Judgement: Good judgement present (Psych) Objective Data Vital Signs Vital Signs: Vital Signs - 24 hr 03/18/21 12:00 03/18/21 12:37 03/18/21 13:07 Temperature 36.9 C Pulse Rate 99 50 L 79 Respiratory Rate 18 16 Blood Pressure 124/46 L Pulse Oximetry 97 03/18/21 13:11 03/18/21 14:45 03/18
--- NOTE | 2021-03-19 10:58 | PCPTNOTE ---
Patient was checked on twice this morning. 1st attempt patient was working with OT. 2nd attempt patient was in bed and sleeping. She declined therapy at this time due to fatigue. Patient declined any gait, mobility and exercises. Patient states she is leaving this date. Will follow up as time allows this date.
== END 2021-03-19 11:55 | disposition home or self-care (01) ==
LOC: ANHSURGERY 15:46 → ANH2MED 15:46
PROVIDERS: Nurse Practitioner Adult Health; Admitting Provider Orthopaedic Surgery; PCP Internal Medicine; Visit Provider Orthopaedic Surgery
PROC: (CPT 28285; principal; 2021-03-17 10:00)
DX: M20.42 Other hammer toe(s) (acquired), left foot (principal); M77.42 Metatarsalgia, left foot; M77.41 Metatarsalgia, right foot; R06.1 Stridor; R06.2 Wheezing; I10 Essential (primary) hypertension; Z96.653 Presence of artificial knee joint, bilateral; Z95.3 Presence of xenogenic heart valve; Z94.7 Corneal transplant status
CPT/HCPCS: 28285; 36415; 71045; 80048; 85025; 92610; 94640; 97110; 97161; 97165; A9270; G0378; J0131; J0690; J1100; J1200; J1885; J2370; J2405; J2704; J3010; J7120